=== PATIENT | female | born 1945 | race Caucasian/White ===

== ENCOUNTER → 2017-11-16 | Outpatient (CLI) | payer MEDICARE, OTHER ==
[~2017-11-16] MED LIST: ADULT LOW DOSE81 MG PO; AMOXICILLIN500 M1 PO; ASPIRIN EC81 M1 PO; ASPIRIN325 PO; B-100 COMPLEX1 EAC1 PO; BENADRYL25 MG PO; CALCIUM 500 +1 EAC6 PO; CALCIUM 600 +1 EAC1; CALCIUM 600 +1 EAC5 PO; CALCIUM PO; CARAFATE 1 GM TA1 G1 PO; CITRACAL-VIT D1 EACH PO; COLACE100 MG; COUMADIN 2 MG TA2 M1 PO; DILTIAZEM 24HR240 M1 PO; FENOFIBRATE160 MG PO; FEVERALL JR 32325 M1 RECTAL; FISH OIL 1,0001 EAC5 PO; FISH OIL 1,001000 M2 PO; FLEXERIL PO; FOLIC ACID1 MG PO; FUROSEMIDE 40 M40 MG PO; FUROSEMIDE 80 M80 M1 PO; GENTAMICIN SU3 MG/ML OPHTHALMIC; HYDROCODON-ACE1 EAC7 PO; HYDROCODONE-AP1 EAC6 PO; IRON 100 PLUS1 EACH PO; IRON325 PO; LASIX 40 MG TAB40 M1 PO; LEVOXYL25 MCG PO; LISINOPRIL2.5 MG PO; LISINOPRIL5 MG PO; MEDROLDOSEPACK PO; METAMUCIL PAC1 UDPKT PO; MOBIC15 MG; MOBIC15 MG PO; NEPHROCAPS SOFT1 CAP; NORCO 5-325 TA1 EACH; OXYCODONE HCL 55 MG; OXYCODONE HCL5 M1 PO; PAIN & FEVER325 MG PO; POLICOSANOL PO; SYNTHROID100 MCG PO; SYNTHROID88 MCG PO; TURMERIC500 M2; TURMERIC500 MG PO; VITAMIN B-50 C0.4 MG PO; VITAMIN D32000 UNI1 PO; VITAMIN D32000 UNIT PO; XARELTO10 M1; XARELTO10 M1 PO; ZOFRAN ODT4 MG DISSOLVE; ZYNCOL30 MG PO; [UNRECOGNIZED DRUG - OTHER] PO
== END ==
LOC: M.MRI 06:44
DX: M47.816 Spondylosis without myelopathy or radiculopathy, lumbar region (principal); R60.0 Localized edema; I48.2 Chronic atrial fibrillation; E78.2 Mixed hyperlipidemia; E03.9 Hypothyroidism, unspecified; I50.30 Unspecified diastolic (congestive) heart failure

== ENCOUNTER → 2017-11-27 | Outpatient (CLI) | payer MEDICARE, OTHER | LOC: M.RAD 11-23 08:56 | DX: Z12.31 Encounter for screening mammogram for malignant neoplasm of breast (principal); M85.89 Other specified disorders of bone density and structure, multiple sites; I48.2 Chronic atrial fibrillation; E78.2 Mixed hyperlipidemia; E03.9 Hypothyroidism, unspecified; I50.30 Unspecified diastolic (congestive) heart failure; Z78.0 Asymptomatic menopausal state ==

== ENCOUNTER 2018-04-26 15:19 | Emergency (ER) | payer MEDICARE, OTHER ==
[~2018-04-26] VITALS: Ht 157.5 cm; Wt 87.5 kg
[~2018-04-26 15:19] MED LIST changes: -CARAFATE 1 GM TA1 G1 PO; -IRON 100 PLUS1 EACH PO; -VITAMIN D32000 UNI1 PO; -ZOFRAN ODT4 MG DISSOLVE
[2018-04-26] MEDS ORDERED: IRON 100 PLUS1 EACH PO (15:31)
[2018-04-26] MEDS ORDERED: VITAMIN D32000 UNI1 PO (15:31)
[2018-04-26 15:50] LABS: ABSOLUTE EOSINOPHILS 0.3 thou/uL (0.0-0.7); ABSOLUTE LYMPHOCYTES 2.3 thou/uL (0.8-5.3); ABSOLUTE MONOCYTES 1.6 thou/uL (0.0-1.2); ABSOLUTE NEUTROPHILS 8.7 thou/uL (1.6-8.1); BASOPHILS 0.3 %; EOSINOPHILS 2.1 %; HEMATOCRIT 36.8 % (37.0-47.0); HEMOGLOBIN 12.1 gm/dL (12.0-15.0); LYMPHOCYTES 17.8 %; MCH 30.2 pg (26.0-34.0); MCHC 32.8 g/dL (28.0-37.0); MCV 91.9 fL (80.0-100.0); MONOCYTES 12.2 %; MPV 10.1 fl. (7.2-11.1); NUCLEATED RBCS 0 /100WBC; PLATELET COUNT* 275 thou/uL (150-400); POLYS 67.6 %; RDW-CV 14.7 % (10.5-14.5); WBC 12.9 thou/uL (4.0-11.0)
[2018-04-26 15:58] LABS: INR 1.6; PROTIME 16.2 Seconds (9.20-11.50)
[2018-04-26 16:00] LABS: ANION GAP 8 mmol/L (7-16); BUN 18 mg/dL (7-18); CALCIUM 9.2 mg/dL (8.5-10.1); CHLORIDE 101 mmol/L (98-107); CO2 29 mmol/L (21-32); CREATININE 1.3 mg/dL (0.6-1.3); GLUCOSE 93 mg/dL (70-99); POTASSIUM 3.4 mmol/L (3.5-5.1); SODIUM 138 mmol/L (136-145)
[2018-04-26 16:10] LABS: ALBUMIN 3.6 g/dL (3.4-5.0); ALKALINE PHOSPHATASE 61 U/L (46-116); LIPASE 108 U/L (73-393); MAGNESIUM 1.8 mg/dL (1.8-2.4); NT-PRO BRAIN NAT PEPTIDE 1778 pg/mL (<300); SGOT 23 U/L (15-37); SGPT 19 U/L (30-65); TOTAL BILIRUBIN 0.5 mg/dL (<0.1-1.0); TOTAL PROTEIN 7.7 g/dL (6.4-8.2); TROPONIN-I LEVEL <0.06 ng/mL (<0.06)
[2018-04-26] MEDS ORDERED: ZOFRAN ODT4 MG DISSOLVE (18:16)
[2018-04-26] MEDS ORDERED: HYDROCODONE-AP1 EAC6 PO (18:16)
[2018-04-26] MEDS ORDERED: CARAFATE 1 GM TA1 G1 PO (18:16)
[2018-04-26 18:45] VITALS: BP 146/82
--- NOTE | 2018-04-28 10:11 | EKG ---
[place] [address] ELECTROCARDIOGRAM REPORT Name: VERNON REDD I Room: [facility]#: [id number] Admission: 04/26/18 Attend Phys: Discharge: 04/26/18 Date of : 41 Report #: [id number] THIS REPORT FOR: //name// [facility] ED Test Date: 2018-04-26 Test Time: 15:23:26 Pat Name: VERNON REDD Department: Room: Gender: F Sanitation Superintendent: : 1945 Requested By: Beck Webster Order Number: [id number] MD: Johnnie Caldera Measurements Intervals [place] Rate: 111 P: -11 MD: 117 QRS: -8 QRSD: 98 T: 44 QT: 316 QTc: 430 Interpretive Statements Atrial fibrillation Repol abnrm suggests ischemia, anterolateral Compared to ECG 04/12/2017 03:22:18 Early repolarization now present Possible ischemia now present Ventricular premature complex(es) no longer present Prolonged QT interval no longer present Electronically Signed On 04-28-2018 10:11:01 MUCK FARMER by Johnnie Caldera [email or web address] <ELECTRONICALLY SIGNED> By: Johnnie Caldera MD, FACC 04/28/18 1011 1523 1523 Johnnie Caldera MD, FAC /EPI
--- NOTE | 2018-04-28 10:13 | EKG ---
[place] [address] ELECTROCARDIOGRAM REPORT Name: VERNON REDD I Room: [facility]#: [id number] Admission: 04/26/18 Attend Phys: Discharge: 04/26/18 Date of : 41 Report #: [id number] THIS REPORT FOR: //name// [facility] ED Test Date: 2018-04-26 Test Time: 17:25:39 Pat Name: VERNON REDD Department: Room: Gender: F Interceptor Operator: Aliyah BRADFORD : 1945 Requested By: Beck Webster Order Number: [id number] MD: Johnnie Caldera Measurements Intervals [place] Rate: 103 P: [place]: QRS: -13 QRSD: 83 T: 15 QT: 354 QTc: 464 Interpretive Statements Atrial fibrillation Possible LVH by voltage Inferior infarct, old Compared to ECG 04/12/2017 03:22:18 Myocardial infarct finding now present Ventricular premature complex(es) no longer present T-wave abnormality no longer present Prolonged QT interval no longer present Electronically Signed On 04-28-2018 10:12:53 BREWERY TECHNICIAN by Johnnie Caldera [email or web address] <ELECTRONICALLY SIGNED> By: Johnnie Caldera MD, FACC 04/28/18 1012 1725 1725 Johnnie Caldera MD, FAC /EPI
== END 2018-04-26 18:47 | disposition home or self-care (01) ==
LOC: M.ERS 15:19
PROVIDERS: Emergency Medicine Emergency Medical Services
DX: M25.512 Pain in left shoulder (principal); R10.11 Right upper quadrant pain; M54.2 Cervicalgia; R10.13 Epigastric pain; I10 Essential (primary) hypertension; E78.00 Pure hypercholesterolemia, unspecified; K21.9 Gastro-esophageal reflux disease without esophagitis; M19.90 Unspecified osteoarthritis, unspecified site; I48.91 Unspecified atrial fibrillation; Z96.651 Presence of right artificial knee joint; Z90.49 Acquired absence of other specified parts of digestive tract; E89.0 Postprocedural hypothyroidism; Z88.1 Allergy status to other antibiotic agents

== ENCOUNTER 2018-05-27 06:40 | Inpatient (IN) | payer MEDICARE, OTHER ==
[2018-05-16 09:25] LABS: ABSOLUTE EOSINOPHILS 0.2 thou/uL (0.0-0.7); ABSOLUTE LYMPHOCYTES 1.5 thou/uL (0.8-5.3); ABSOLUTE MONOCYTES 0.7 thou/uL (0.0-1.2); BASOPHILS 0.6 %; EOSINOPHILS 2.9 %; HEMATOCRIT 37.5 % (37.0-47.0); HEMOGLOBIN 12.1 gm/dL (12.0-15.0); MCH 29.8 pg (26.0-34.0); MCHC 32.4 g/dL (28.0-37.0); MCV 92.2 fL (80.0-100.0); MPV 10.3 fl. (7.2-11.1); NUCLEATED RBCS 0 /100WBC; PLATELET COUNT* 286 thou/uL (150-400); POLYS 67.5 %; RBC 4.07 mil/uL (4.20-5.00); RDW-CV 14.7 % (10.5-14.5); WBC 7.4 thou/uL (4.0-11.0)
[2018-05-16 09:33] LABS: ALBUMIN 3.4 g/dL (3.4-5.0); CALCIUM 9.1 mg/dL (8.5-10.1); CREATININE 1.4 mg/dL (0.6-1.3); POTASSIUM 3.2 mmol/L (3.5-5.1); TOTAL BILIRUBIN 0.6 mg/dL (<0.1-1.0); TOTAL PROTEIN 7.3 g/dL (6.4-8.2)
[2018-05-16 09:57] LABS: APTT 36.3 Seconds (25.0-31.3); PROTIME 20.9 Seconds (9.20-11.50)
[2018-05-16 11:12] LABS: ESR (SEDRATE) 25 mm/hr (0-30)
[2018-05-16 21:11] LABS: GLYCOHEMOGLOBIN (HGB A1C) 5.9 % (4.8-5.6)
[~2018-05-27] VITALS: Ht 157.5 cm; Wt 91.6 kg
--- NOTE | ~2018-05-27 | OP ---
[address] [address] OPERATIVE REPORT Name: VERNON REDD I Room: [address] IN .R.#: [id number] Admission: 05/27/18 Attend Phys: Abilio Davila Discharge: Date of : 41 Report #: [id number] THIS REPORT FOR: //name// CC: Zhang Ramirez DICTATED BY: Grant Perez DO DATE OF SERVICE: 05/27/2018 PREOPERATIVE DIAGNOSIS: Right hip advanced degenerative joint disease. POSTOPERATIVE DIAGNOSIS: Right hip advanced degenerative joint disease. PROCEDURE PERFORMED: Right total hip arthroplasty. SURGEON: Roman Myers DO. RETAIL LOSS PREVENTION INVESTIGATOR: Grant Perez DO. ANESTHESIA: General. ESTIMATED BLOOD LOSS: 250 mL. SPECIMENS: None. COMPLICATIONS: None. CONDITION: Stable. DISPOSITION: To PACU to the orthopedic floor. IMPLANTS: Biomet total hip system utilizing the following components: 1. G7 3-hole size 52-mm acetabular shell, size 12 Taperloc Microplasty high-offset stem, 36-mm ceramic head, a G7 acetabular liner, 36 mm. 2. Two 6.5-mm bone screws. 3. -3 taper adaptor neck. INDICATION FOR PROCEDURE: The patient is a 72-year-old female who has been followed in the outpatient orthopedic clinic with longstanding right hip pain. Physical exam and radiographic evidence suggest advanced degenerative joint disease. She has failed conservative measures for greater than 3 months. We discussed further treatment including total hip arthroplasty. Risks, benefits, complications and alternatives of the procedure were discussed with [place] [address] OPERATIVE REPORT Name: VERNON REDD I Room: [address] IN [facility].#: [id number] Admission: 05/27/18 Attend Phys: Abilio Davila Discharge: Date of : 41 Report #: [id number] in detail. Risks include, but are not limited to blood loss, infection, DVT/PE, failure to alleviate pain, failure of the implant, need for repeat or revision surgery and complications of anesthesia. The patient expressed understanding and wished to proceed. DESCRIPTION OF PROCEDURE: The patient was transferred to the operating suite and placed on the operating table in the supine position. She was given the benefit of general anesthesia. The bilateral lower extremities were then placed into the traction boots on the [place] table. The right hip area was then prepped and draped in the usual sterile fashion. A timeout was then taken to confirm the appropriate patient identification, operative site and procedure to be performed. All in the room were in agreement with timeout. The procedure then began with using a 10 blade scalpel to incise the skin overlying the right hip at the standard side of the anterior hip approach. Dissection was then carried down with electrocautery to the level of the iliotibial band. The iliotibial band was then incised sharply using a fresh scalpel blade. The incision in the IT band was then extended proximally and distally using a Erazo scissors. The blunt dissection was then used to carry around to the anterior aspect of the tensor fascia ani muscle belly. Meyerding retractors were then used to retract the iliotibial band anteriorly with sartorius and to retract the tensor fascia ani posteriorly. Scissors were then used to carefully dissect through the next layer of fascia and Aquamantys was used to cauterize her large vessels. At this point, retractors were used to expose the hip capsule. Aquamantys was again used to cauterize the hip capsule. Hip capsule was then excised using electrocautery. This effectively exposed the femoral head and outer aspect of the acetabulum. The bone saw was then used to perform our femoral neck cut in a napkin ring fashion. Bone tenaculums were then used to remove the napkin ring neck followed by the femoral head. Attention was then addressed to the acetabulum. The remainder of the capsule as well as the hip labrum were excised using electrocautery. The acetabular reamers were then inserted into the hip and the acetabulum was reamed. Reaming was carried down until the cotyloid fossa was obliterated. This was noted to be appropriate with a size 51-mm reamer. The acetabulum was then irrigated and the final shell malleted in place using the guide for positioning. C-arm fluoroscopy was used to confirm appropriate positioning of our cup. The screw holes were then drilled and two screws were inserted into the acetabular shell to secure the shell in place. The shell was again irrigated and the final polyethylene was inserted with the high wall portion on the anterior aspect of the acetabulum. Attention was then addressed to the proximal femur. Electrocautery was used to perform further release to allow the proximal femur to elevate slightly out of the incision. Electrocautery was also used to excise any remaining capsule that was in the way of our exposure. Box osteotome was then used to open the [address] [address] OPERATIVE REPORT Name: VERNON REDD I Room: [address] [place] [facility].#: [id number] Admission: 05/27/18 Attend Phys: Abilio Davila Discharge: Date of : 41 Report #: [id number] proximal femoral canal followed by the rattail canal finder. The canal was then sequentially broached to an appropriate size, which was noted to be a size 12 femur. A trial of -3 neck length was put in place. C-arm fluoroscopy was used to confirm appropriate positioning of our trialed implants as well as our leg lengths. The hip was taken through range of motion and found to be stable in all planes. The trial implants were then removed. The hip was thoroughly irrigated again. Vancomycin powder was applied to the wound. Final implants were placed with the above-mentioned sizes. C-arm fluoroscopy was again used to confirm appropriate positioning of our final implants and the hip was again taken through range of motion and found to be stable in all planes with the final implants in place. The wound was thoroughly irrigated. The IT band was closed using a running #1 V-Loc suture. Subcutaneous layer was performed with a 2-0 Monocryl in an inverted fashion. Final skin layer was closed using a running 3-0 Stratafix and followed by Dermabond skin glue. The patient tolerated the procedure well. Sterile dressing of Mepilex was applied and she was transferred to PACU in stable condition. Needle and sponge counts at the end of the case were correct x 2. By: [id number] Myers DO /cirilo
[~2018-05-27 06:40] MED LIST changes: -CALCIUM 600 +1 EAC1; +CALCIUM 600 +1 EAC1 PO; +CARAFATE 1 GM TA1 G1 PO; +IRON 100 PLUS1 EACH PO; -NEPHROCAPS SOFT1 CAP; +NEPHROCAPS SOFT1 CAP PO; -TURMERIC500 M2; +TURMERIC500 M2 PO; +VITAMIN D32000 UNI1 PO; +ZOFRAN ODT4 MG DISSOLVE
[2018-05-27 11:45] VITALS: BP 126/67
[2018-05-27 11:49] LABS: INR 1.1; PROTIME 10.9 Seconds (9.20-11.50)
[2018-05-27 18:46] VITALS: BP 107/65
[2018-05-28] VITALS (7 sets, daily range): BP systolic 113–120; BP diastolic 68–77
[2018-05-28 04:25] LABS: HEMATOCRIT 33.4 % (37.0-47.0); HEMOGLOBIN 10.9 gm/dL (12.0-15.0)
[2018-05-28] MEDS ORDERED: ENOXAPARIN40 MG/0.1 SUBQ (16:00)
[2018-05-28] MEDS ORDERED: OXYCODONE HCL 55 MG PO (16:44)
== END 2018-05-28 17:25 | disposition home or self-care (01) | DRG 470 ==
LOC: M.PRE 06:40 → M.TBA 11:17 → M.ORTHSURG 11:17 → M.PRE 12:25 → M.ORTHSURG 18:08
PROVIDERS: Orthopaedic Surgery; ADMIT Internal Medicine
PROC: 0SR90JZ Replacement of Right Hip Joint with Synthetic Substitute, Open Approach (ICD-10-PCS; principal; 2018-05-27)
DX: M16.11 Unilateral primary osteoarthritis, right hip (principal); I10 Essential (primary) hypertension; I48.91 Unspecified atrial fibrillation; Z96.653 Presence of artificial knee joint, bilateral; Z87.81 Personal history of (healed) traumatic fracture; Z90.49 Acquired absence of other specified parts of digestive tract; Z98.42 Cataract extraction status, left eye; Z98.41 Cataract extraction status, right eye; Z79.01 Long term (current) use of anticoagulants; Z79.899 Other long term (current) drug therapy; Z88.1 Allergy status to other antibiotic agents; Z82.49 Family history of ischemic heart disease and other diseases of the circulatory system

== ENCOUNTER → 2018-12-02 | Outpatient (CLI) | payer MEDICARE, OTHER ==
[~2018-12-02] MED LIST changes: +ENOXAPARIN40 MG/0.1 SUBQ; +OXYCODONE HCL 55 MG PO
== END ==
LOC: M.RAD 06:42
DX: Z12.31 Encounter for screening mammogram for malignant neoplasm of breast (principal)

== ENCOUNTER → 2019-02-20 | Outpatient (CLI) | payer MEDICARE, OTHER | LOC: M.RAD 10:19 | DX: J06.9 Acute upper respiratory infection, unspecified (principal); M47.814 Spondylosis without myelopathy or radiculopathy, thoracic region; J84.10 Pulmonary fibrosis, unspecified; R05 Cough; Z88.0 Allergy status to penicillin; Z88.8 Allergy status to other drugs, medicaments and biological substances ==

== ENCOUNTER → 2019-12-16 | Outpatient (CLI) | payer MEDICARE, OTHER | LOC: M.RAD 08:55 | PROVIDERS: ATTEND Registered Nurse Diabetes Educator | DX: Z12.31 Encounter for screening mammogram for malignant neoplasm of breast (principal); N60.89 Other benign mammary dysplasias of unspecified breast; M85.862 Other specified disorders of bone density and structure, left lower leg; M85.88 Other specified disorders of bone density and structure, other site; Z78.0 Asymptomatic menopausal state ==

== ENCOUNTER → 2020-08-26 | Outpatient (CLI) | payer MEDICARE, OTHER ==
[2020-08-26 08:16] LABS: INR 1.1
== END ==
LOC: M.LAB 05:46
PROVIDERS: ATTEND Anesthesiology
DX: E87.6 Hypokalemia (principal); R79.1 Abnormal coagulation profile

== ENCOUNTER → 2020-12-31 | Outpatient (CLI) | payer MEDICARE, OTHER | LOC: M.RAD 10:07 | PROVIDERS: ATTEND Registered Nurse Diabetes Educator | DX: Z12.31 Encounter for screening mammogram for malignant neoplasm of breast (principal) ==

== ENCOUNTER → 2021-04-12 | Outpatient (CLI) | payer MEDICARE, OTHER ==
[2021-04-12 15:22] LABS: URINE BILIRUBIN NEGATIVE (Negative); URINE BLOOD 3+ (Negative); URINE COLOR YELLOW; URINE GLUCOSE-RANDOM NEGATIVE (Negative); URINE KETONES NEGATIVE (Negative); URINE PROTEIN 1+ (Negative); URINE SPECIFIC GRAVITY 1.015 (1.005-1.030); URINE UROBILINOGEN 0.2 E.U./dl (0.2-1.0)
[2021-04-12 15:24] LABS: URINE LEUKOCYTES-REFLEX 3+ (Negative); URINE NITRITE-REFLEX POSITIVE (Negative)
[2021-04-12 15:36] LABS: CASTS None Seen /LPF (None Seen); MUCUS None Seen strn/LPF (None Seen); SQUAMOUS 0-3 Few /LPF (0-3); URINE WBC-REFLEX >25 Many /HPF (0-5); WBC CLUMPS Few (None Seen)
[2021-04-12 15:37] LABS: CRYSTALS None Seen /LPF (None Seen)
[2021-04-12 15:38] LABS: URINE CLARITY HAZY
== END ==
LOC: M.RAD 14:38
PROVIDERS: ATTEND Registered Nurse Diabetes Educator
DX: J98.4 Other disorders of lung (principal); R50.9 Fever, unspecified

== ENCOUNTER → 2021-04-19 | Outpatient (CLI) | payer MEDICARE, OTHER | LOC: M.CT 09:29 | PROVIDERS: ATTEND Registered Nurse Diabetes Educator | DX: J98.4 Other disorders of lung (principal); I70.0 Atherosclerosis of aorta; I25.10 Atherosclerotic heart disease of native coronary artery without angina pectoris; J84.10 Pulmonary fibrosis, unspecified; R93.89 Abnormal findings on diagnostic imaging of other specified body structures ==